=== PATIENT | female | born 1935 | race African-American/Black ===

== ENCOUNTER 2019-06-19 19:20 | Inpatient (IN) | payer MEDICARE, MEDICAID ==
[~2019-06-19] VITALS: Ht 172.7 cm; Wt 93.4 kg
[2019-06-19] MEDS ORDERED: SODIUM CHLORIDE 0.9% 1,000 ML IV ONE ×2 (19:40→22:15)
[2019-06-19 20:13] LABS: BASOPHILS % 0.7 % (0.0-2.0); CHLORIDE 106 mEq/L (98-107); EOSINOPHILS % 0.1 % (0.0-5.0); HEMATOCRIT. 26.4 % (36.0-48.0); HEMOGLOBIN. 8.7 g/dL (12.0-16.0); MEAN CORPUSCULAR HEMOGLOBIN 31.5 pg (28.0-32.0); MEAN CORPUSCULAR VOLUME 96.3 fL (81.0-99.0); MEAN PLATELET VOLUME 9.4 fl (7.4-10.4); MONOCYTES % 11.8 % (2.0-8.0); NEUTROPHILS % 57.4 % (40.0-76.0); PLATELET 212 x1000/uL (130-400); RED BLOOD CELL COUNT 2.75 mill/uL (4.2-5.4)
[2019-06-19 20:14] LABS: INR 1.3; PROTHROMBIN TIME 12.8 sec (9.6-11.0)
[2019-06-19 21:34] LABS: BG BASE EXCESS -1.2 mmol/L (-2.0-2.0); BG CARBOXYHEMOGLOBIN 0.1 % (0.5-1.5); BG DEOXYHEMOGLOBIN 2.2 % (0.0-5.0); BG FRACTION INSPIRED OXYGEN 28; BG HCO3 ACT 22.2 mmol/L (22.0-26.0); BG METHEMOGLOBIN 0.1 % (0.0-1.5); BG OXYGEN SATURATION 97.8 % (92.0-98.5); BG OXYHEMOGLOBIN 97.6 % (94.0-97.0); BG PCO2 32.2 mmHg (35.0-45.0); BG PH 7.457 (7.350-7.450); BG PO2 108.5 mmHg (75.0-100.0); BG SAMPLE SITE RIGHT RADIAL; BG TOTAL HEMOGLOBIN 9.1 g/dL (12.0-18.0); BG VENT MODE NASAL CANNULA
[2019-06-19] MEDS ORDERED: ASPIRIN 300MG SUPP PR ONE (22:15)
[2019-06-19] MEDS ORDERED: CLONIDINE 0.1MG TABLET PO PRN (23:30)
[2019-06-19] MEDS ORDERED: GUAIFENESIN 200MG/10ML SUGAR FREE UDC PO PRN (23:30)
[2019-06-19] MEDS ORDERED: ACETAMINOPHEN 325MG TABLET PO PRN (23:30)
[2019-06-19] MEDS ORDERED: ONDANSETRON HCL 4MG/2ML INJ IV PRN (23:30)
[2019-06-19] MEDS ORDERED: DIPHENHYDRAMINE 50MG/ML VIAL IV PRN (23:30)
[2019-06-20] MEDS ORDERED: ENOXAPARIN 40MG/0.4ML SYR SUBCUT SCH (03:00)
[2019-06-20 05:14] LABS: CLARITY URINE CLOUDY (CLEAR); COLOR URINE DARK YELLOW (YELLOW); KETONES URINE NEGATIVE (NEGATIVE); LEUKOCYTE ESTERASE URINE TRACE (NEGATIVE); NITRITE URINE NEGATIVE (NEGATIVE); OCCULT BLOOD URINE NEGATIVE (NEGATIVE); PROTEIN URINE 1+ (NEGATIVE); SPECIFIC GRAVITY URINE 1.029 (1.005-1.030)
[2019-06-20] MEDS ORDERED: SODIUM CHLORIDE 0.9% 1,000 ML IV SCH (06:00)
[2019-06-20 09:25] VITALS: BP 129/67
[2019-06-20] MEDS ORDERED: IPRATROPIUM/ALBUTEROL 0.5-3(2.5)MG/3ML NEB HHN PRN (10:30)
[2019-06-20] MEDS ORDERED: METHYLPREDNISOLONE SOD SUCC 125 MG/2 ML VIAL IV NR (10:30)
[2019-06-20] MEDS ORDERED: FUROSEMIDE 40MG TABLET PO SCH (10:30)
[2019-06-20 12:00] VITALS: BP 128/71
[2019-06-20] MEDS ORDERED: FUROSEMIDE 40MG/4ML VIAL IVP SCH (12:00)
[2019-06-20] MEDS: ASPIRIN 81MG EC TABLET PO SCH (12:15)
[2019-06-20] MEDS: IPRATROPIUM/ALBUTEROL 0.5-3(2.5)MG/3ML NEB HHN SCH ×2 (13:24→20:12)
[2019-06-20] MEDS: AZITHROMYCIN 500 MG in DEXT 5% WATER 250 ML IV SCH (13:32)
[2019-06-20] MEDS: METHYLPREDNISOLONE SOD SUCC 125 MG/2 ML VIAL IV SCH ×2 (14:27→21:24)
[2019-06-20 16:00] VITALS: BP_SYST 106; BP_SYST 128; BP_DIAS 65; BP_DIAS 71
[2019-06-20] MEDS ORDERED: APIXABAN 5 MG TABLET PO SCH (17:00)
[2019-06-20] MEDS: APIXABAN 2.5 MG TABLET PO SCH (17:18)
[2019-06-20] MEDS ORDERED: APIX5TAB PO (19:30)
[2019-06-20] MEDS ORDERED: CARB-32 PO (19:31)
[2019-06-20] MEDS ORDERED: CARV3.1242 PO (19:35)
[2019-06-20] MEDS ORDERED: SPIR25TA6 PO (19:35)
[2019-06-20] MEDS ORDERED: MECL-159 PO (19:35)
[2019-06-20] MEDS ORDERED: CLON0.1T PO (19:35)
[2019-06-20] MEDS ORDERED: LOSA50TA41 PO (19:35)
[2019-06-20] MEDS ORDERED: MIRT15TA6 PO (19:35)
[2019-06-20 20:27] VITALS: BP 113/64
[2019-06-20] MEDS: DIVALPROEX SODIUM 500MG DR TABLET PO SCH ×2 (21:00→21:40)
[2019-06-20] MEDS: OMEPRAZOLE 20MG CAPSULE EXTENDED RELEASE PO SCH ×2 (21:00→21:35)
[2019-06-20] MEDS: CARVEDILOL 3.125 MG TABLET PO SCH ×2 (21:00→21:34)
[2019-06-20] MEDS: FAMOTIDINE 20MG TABLET PO SCH ×2 (21:00→21:34)
[2019-06-21 00:32] VITALS: BP 112/63
[2019-06-21] MEDS: IPRATROPIUM/ALBUTEROL 0.5-3(2.5)MG/3ML NEB HHN SCH ×4 (02:19→19:59)
[2019-06-21] MEDS ORDERED: ENOXAPARIN 40MG/0.4ML SYR SUBCUT SCH (03:00)
[2019-06-21 04:00] VITALS: BP 104/53
[2019-06-21] MEDS: METHYLPREDNISOLONE SOD SUCC 125 MG/2 ML VIAL IV SCH ×3 (05:46→21:11)
[2019-06-21 06:10] LABS: BASOPHILS % 0.2 % (0.0-2.0); HEMATOCRIT. 24.6 % (36.0-48.0); HEMOGLOBIN. 8.4 g/dL (12.0-16.0); LYMPHOCYTES % 16.5 % (20.0-50.0); MEAN CORPUSCULAR HEMOGLOBIN 32.3 pg (28.0-32.0); MEAN PLATELET VOLUME 9.6 fl (7.4-10.4); MONOCYTES % 4.9 % (2.0-8.0); NEUTROPHILS % 78.4 % (40.0-76.0); PLATELET 158 x1000/uL (130-400); RED BLOOD CELL COUNT 2.58 mill/uL (4.2-5.4); RED CELL DISTRIBUTION WIDTH 15.8 % (11.6-14.6)
[2019-06-21] MEDS: OMEPRAZOLE 20MG CAPSULE EXTENDED RELEASE PO SCH ×2 (06:39→21:10)
[2019-06-21 07:00] LABS: CHLORIDE 110 mEq/L (98-107)
[2019-06-21 07:10] LABS: PHOSPHORUS 4.1 mg/dL (2.5-4.9)
[2019-06-21 08:00] VITALS: BP 102/64
[2019-06-21] MEDS: AZITHROMYCIN 500 MG in DEXT 5% WATER 250 ML IV SCH (08:40)
[2019-06-21] MEDS: ASPIRIN 81MG EC TABLET PO SCH (08:40)
[2019-06-21] MEDS: APIXABAN 2.5 MG TABLET PO SCH (08:41)
[2019-06-21] MEDS: CARVEDILOL 3.125 MG TABLET PO SCH ×2 (08:42→21:10)
[2019-06-21] MEDS: DIVALPROEX SODIUM 250MG DR TABLET PO SCH ×2 (09:44→21:10)
[2019-06-21] MEDS ORDERED: PNEUMOCOCCAL 23-VAL P-SAC VAC 0.5 ML IM ONE (10:00)
[2019-06-21 12:00] VITALS: BP 104/64
[2019-06-21 16:00] VITALS: BP 107/59
[2019-06-21] MEDS: APIXABAN 5 MG TABLET PO SCH (16:36)
[2019-06-21 20:12] VITALS: BP 113/61
[2019-06-21] MEDS: FAMOTIDINE 20MG TABLET PO SCH (21:10)
[2019-06-22] VITALS (7 sets, daily range): BP systolic 98–116; BP diastolic 62–68
[2019-06-22] MEDS: IPRATROPIUM/ALBUTEROL 0.5-3(2.5)MG/3ML NEB HHN SCH ×3 (04:07→16:01)
[2019-06-22] MEDS: METHYLPREDNISOLONE SOD SUCC 125 MG/2 ML VIAL IV SCH (05:45)
[2019-06-22] MEDS: OMEPRAZOLE 20MG CAPSULE EXTENDED RELEASE PO SCH (05:45)
[2019-06-22] MEDS: AZITHROMYCIN 500 MG in DEXT 5% WATER 250 ML IV SCH (08:24)
[2019-06-22] MEDS: CARVEDILOL 3.125 MG TABLET PO SCH (08:25)
[2019-06-22] MEDS: DIVALPROEX SODIUM 250MG DR TABLET PO SCH (08:25)
[2019-06-22] MEDS: ASPIRIN 81MG EC TABLET PO SCH (08:25)
[2019-06-22] MEDS: APIXABAN 5 MG TABLET PO SCH ×2 (08:25→16:54)
[2019-06-22 10:16] LABS: BG BASE EXCESS -4.7 mmol/L (-2.0-2.0); BG CARBOXYHEMOGLOBIN 0.3 % (0.5-1.5); BG DEOXYHEMOGLOBIN 4.5 % (0.0-5.0); BG FRACTION INSPIRED OXYGEN 21; BG HCO3 ACT 19.1 mmol/L (22.0-26.0); BG METHEMOGLOBIN 0.2 % (0.0-1.5); BG OXYGEN SATURATION 95.5 % (92.0-98.5); BG PCO2 30.4 mmHg (35.0-45.0); BG PH 7.416 (7.350-7.450); BG PO2 83.4 mmHg (75.0-100.0); BG SAMPLE SITE RIGHT RADIAL; BG TOTAL HEMOGLOBIN 9.3 g/dL (12.0-18.0); BG VENT MODE ROOM AIR
== END 2019-06-22 20:25 | DRG 193 ==
LOC: ER 19:20 → 6WST 22:05 → EDBEDREQTM 22:10 → EDBEDREQ 22:10 → EDBEDREQTM 22:23 → ENRESERV 06-20 07:41
PROVIDERS: ADMIT Internal Medicine; ATTEND Internal Medicine
DX: J18.9 Pneumonia, unspecified organism (principal); J96.00 Acute respiratory failure, unspecified whether with hypoxia or hypercapnia; G93.40 Encephalopathy, unspecified; D68.59 Other primary thrombophilia; I48.20 Chronic atrial fibrillation, unspecified; I50.20 Unspecified systolic (congestive) heart failure; J20.9 Acute bronchitis, unspecified; F02.80 Dementia in other diseases classified elsewhere, unspecified severity, without behavioral disturbance, psychotic disturbance, mood disturbance, and anxiety; G20 Parkinson's disease; G40.909 Epilepsy, unspecified, not intractable, without status epilepticus; I25.10 Atherosclerotic heart disease of native coronary artery without angina pectoris; I11.0 Hypertensive heart disease with heart failure; I48.91 Unspecified atrial fibrillation; I25.5 Ischemic cardiomyopathy; K21.9 Gastro-esophageal reflux disease without esophagitis; R29.810 Facial weakness; Z79.01 Long term (current) use of anticoagulants; Z86.73 Personal history of transient ischemic attack (TIA), and cerebral infarction without residual deficits; Z87.891 Personal history of nicotine dependence; Z79.899 Other long term (current) drug therapy
CPT/HCPCS: 36415; 36600; 71045; 80048; 80053; 81003; 82375; 82805; 82962; 83735; 84100; 85025; 87804; 92610; 93005; 93306; 93970; 94640; 99285; J0456; J1200; J1650; J1940; J2930; J7030; J7060; A4315